=== PATIENT | female | born 1960 | race Caucasian/White ===

== ENCOUNTER → 2020-06-05 10:20 | Outpatient (CLI) | payer OTHER, SELFPAY ==
--- NOTE | ~2020-06-05 | MM_ITS ---
EXAMINATION: MM screening [facility] BI w lo HISTORY: Screening TECHNIQUE: Craniocaudal and mediolateral oblique 3-D tomosynthesis images were obtained and synthetic 2-D images were generated. CAD analysis was submitted and interpreted. COMPARISON: Comparison to multiple prior studies sequentially, with oldest reviewed study dated 11/10. BREAST PARENCHYMAL COMPOSITION: There are scattered areas of fibroglandular density. FINDINGS: There is no evidence of suspicious mass, calcification, or architectural distortion to sugg est malignancy in either breast. There has been no suspicious interval change. IMPRESSION: 1. No mammographic evidence of malignancy. 2. Recommend routine screening mammography in one year. BI-RADS Category 1: Negative Reviewed, dictated and finalized at location A. ENTAL PAVER INSTALLER
== END ==
PROVIDERS: PCP Nurse Practitioner Family; Visit Provider Obstetrics & Gynecology
DX: Z12.31 Encounter for screening mammogram for malignant neoplasm of breast (principal)
CPT/HCPCS: 77063; 77067

== ENCOUNTER → 2021-03-30 02:29 | Outpatient (CLI) | payer OTHER, SELFPAY ==
[2021-03-30 19:54] LABS: SARS-CoV-2 RNA PCR Positive
== END ==
PROVIDERS: PCP Nurse Practitioner Family; Visit Provider Nurse Practitioner
DX: U07.1 COVID-19 (principal)
CPT/HCPCS: C9803; U0003; U0005

== ENCOUNTER → 2021-08-20 10:43 | Outpatient (CLI) | payer OTHER, SELFPAY ==
--- NOTE | ~2021-08-20 | MM_ITS ---
EXAMINATION: MM screening [facility] w lo HISTORY: Screening TECHNIQUE: Craniocaudal and mediolateral oblique 3-D tomosynthesis images were obtained and synthetic 2-D images were generated. CAD analysis was submitted and interpreted. COMPARISON: Comparison to multiple prior studies sequentially, with oldest reviewed study dated . . BREAST PARENCHYMAL COMPOSITION: The breasts are almost entirely fatty. FINDINGS: There is no evidence of suspicious mass, calcification, or architectural distortion to sugg est malignancy in either breast. There has been no suspicious interval change. IMPRESSION: 1. No mammographic evidence of malignancy. 2. Recommend routine screening mammography in one year. BI-RADS Category 1: Negative Reviewed, dictated and finalized at location A. TICAL SCIENCE RESEARCH ASSISTANT
== END ==
PROVIDERS: Visit Provider Obstetrics & Gynecology
DX: Z12.31 Encounter for screening mammogram for malignant neoplasm of breast (principal)
CPT/HCPCS: 77063; 77067

== ENCOUNTER 2022-01-20 00:18 | Day surgery (SDC) | payer OTHER, SELFPAY ==
[2022-01-10 11:11] VITALS: BMI 32.0
--- NOTE | 2022-01-20 07:31 | WPDANESEPPF ---
Anes - Initial Pre Proc Eval Procedure: Operation Date: 01/20/22 09:15 Proposed Procedures p Screening Colonoscopy - Trino Spangler MD Date/Time: 01/20/22 07:31 Surgeon: Trino Spangler MD Pre Op Diagnosis: neoplasm screening, family hx of colon cancer Patient Data Age: 61 Gender: F Height: 1.68 m Weight: 90 kg Allergies Allergy/AdvReac Type Severity Reaction Status Date / Time No Known Allergies Allergy Verified 01/10/22 11:21 Home Medications Medication Instructions Recorded Confirmed Type cholecalciferol (vitamin D3) 25 25 mcg PO DAILY 04/29/21 01/10/22 History mcg (1,000 unit) capsule cranberry 400 mg capsule 400 mg PO DAILY 04/29/21 01/10/22 History multivitamin (Daily Multi-Vitamin 1 tablet PO DAILY 04/29/21 01/10/22 History tablet) omega-3 fatty acids 1,000 mg 1,200 mg PO BID 04/29/21 01/10/22 History capsule (Fish Oil Concentrate) potassium iodide 65 mg tablet 130 mg PO DAILY 11/02/21 01/10/22 History simvastatin 10 mg tablet 10 mg PO QHS #90 tabs 12/13/21 01/10/22 Rx levothyroxine 50 mcg tablet 50 mcg PO DAILY #90 tabs 12/28/21 01/10/22 Rx aspirin 81 mg capsule 81 mg PO DAILY 01/10/22 01/10/22 History biotin 5,000 mcg sublingual tablet 5,000 mcg sublingual DAILY 01/10/22 01/10/22 History lactobacillus combination no.8 3 1 cell PO DAILY 01/10/22 01/10/22 History billion cell capsule Patient hx anesthesia problems: none Family hx anesthesia problems: none Results Review: All pre-operative results and documents have been reviewed as part of the pre-operative evaluation. [facility] Past Medical History Medical History (Updated 01/20/22 @ 07:32 by Maksim Bajwa DO) Family hx of colon cancer Hypertension Hypothyroidism (acquired) Mixed hyperlipidemia Prediabetes Surgical History Surgical History No history of previous surgery Family History Family History Mother Carcinoma of colon Heart disease Father Lung cancer Social History Social History Years smoked: 2,007 Smoking status: Former smoker Tobacco type: cigarettes Alcohol intake: current Drinks per week: 7 Substance use type: marijuana Living arrangements: with family Anes - Eval Final PreProcedure Day of Procedure 01/20/22 07:31 Patient weight: obese Heart: regular rate and rhythm Lungs: clear to auscultation Airway: Mallampati scale class II Neurological: alert and oriented Last oral intake: >/= 8 hours ASA classification: III Emergent: no Anesthetic plan: proceed Anesthesia type and monitoring: general GIVS and standard monitoring Results Review: All pre-operative results and documents have been reviewed as part of the pre-operative evaluation. Informed Consent: The patient's anesthetic plan and its attendant risks and benefits were discussed with the patient/family/POA. Questions were solicited and answers provided to the satisfaction of the patient/family/POA.
[2022-01-20 07:47] VITALS: BP 161/92; PULSE 66; RESP 18; TEMP 36.7; O2SAT 100; BMI 32.1
--- NOTE | 2022-01-20 07:49 | WPDGICN ---
Assessment and Plan Assessment and plan (1) Family hx of colon cancer: Code(s): Z80.0 - Family history of malignant neoplasm of digestive organs Status: Acute Assessment and Plan: Patient has a family history of colon cancer in her mother. Plan is for surveillance colonoscopy now and consider this at 5 year intervals in the future. GI Consult Note Consult date/time: 01/20/22 07:49 Reason for consult: Family history of colon cancer. HPI: Cleo Salazar is a 61 year old female Presents for screening colonoscopy. Patient's current weight appetite and bowel movements are normal. She denies abdominal pain. Patient has had no bleeding. Family history is significant that her mother had colon cancer. Patient reports previous colonoscopy 11 years ago was unremarkable. She presents today for neoplasia screening. Review of Systems Review of Systems: Review of systems noncontributory. [facility] Past Medical History Medical History (Updated 01/20/22 @ 07:32 by Maksim Bajwa DO) Family hx of colon cancer Hypertension Hypothyroidism (acquired) Mixed hyperlipidemia Prediabetes Surgical History Surgical History No history of previous surgery Family History Family History Mother Carcinoma of colon Heart disease Father Lung cancer Social History Social History Years smoked: 2,007 Smoking status: Former smoker Tobacco type: cigarettes Alcohol intake: current Drinks per week: 7 Substance use type: marijuana Living arrangements: with family Meds Home Medications and Allergies Home Medications Medication Instructions Recorded Confirmed Type cholecalciferol (vitamin D3) 25 25 mcg PO DAILY 04/29/21 01/10/22 History mcg (1,000 unit) capsule cranberry 400 mg capsule 400 mg PO DAILY 04/29/21 01/10/22 History multivitamin (Daily Multi-Vitamin 1 tablet PO DAILY 04/29/21 01/10/22 History tablet) omega-3 fatty acids 1,000 mg 1,200 mg PO BID 04/29/21 01/10/22 History capsule (Fish Oil Concentrate) potassium iodide 65 mg tablet 130 mg PO DAILY 11/02/21 01/10/22 History simvastatin 10 mg tablet 10 mg PO QHS #90 tabs 12/13/21 01/10/22 Rx levothyroxine 50 mcg tablet 50 mcg PO DAILY #90 tabs 12/28/21 01/10/22 Rx aspirin 81 mg capsule 81 mg PO DAILY 01/10/22 01/10/22 History biotin 5,000 mcg sublingual tablet 5,000 mcg sublingual DAILY 01/10/22 01/10/22 History lactobacillus combination no.8 3 1 cell PO DAILY 01/10/22 01/10/22 History billion cell capsule Allergies Allergy/AdvReac Type Severity Reaction Status Date / Time No Known Allergies Allergy Verified 01/20/22 07:46 Vital Signs Vital Signs - 24 hr 01/20/22 07:47 Temperature 98.1 F Pulse Rate 66 Respiratory Rate 18 Blood Pressure 161/92 H Pulse Oximetry 100 Oxygen Delivery Room Air Exam Narrative: Physical exam reveals patient to be alert. Vital signs stable. HEENT exam is unremarkable. Patient is anicteric. Lungs are clear to auscultation and percussion. Heart is without murmur or extra sounds. Abdominal exam bowel sounds are present soft nontender with no organomegaly. Digital external rectal exam is normal.
[2022-01-20] MEDS: LACTATED RINGERS 1,000 ML 150 ML IV CONT (07:59)
[2022-01-20 09:05] VITALS: BP 104/64; PULSE 60; RESP 23; O2SAT 100
[2022-01-20 09:15] VITALS: BP 122/82; PULSE 62; RESP 18; O2SAT 100
[2022-01-20 09:25] VITALS: BP 128/75; PULSE 48; RESP 19; O2SAT 100
== END 2022-01-20 09:40 | disposition home or self-care (01) ==
PROVIDERS: PCP Nurse Practitioner Family; Visit Provider Internal Medicine Gastroenterology
PROC: 0DJD8ZZ Inspection of Lower Intestinal Tract, Via Natural or Artificial Opening Endoscopic (ICD-10-PCS; CPT 45378; principal; 2022-01-20 09:15)
DX: Z12.11 Encounter for screening for malignant neoplasm of colon (principal); Z80.0 Family history of malignant neoplasm of digestive organs; K64.8 Other hemorrhoids; K57.30 Diverticulosis of large intestine without perforation or abscess without bleeding; I10 Essential (primary) hypertension; E03.9 Hypothyroidism, unspecified; R73.03 Prediabetes; E78.2 Mixed hyperlipidemia; Z87.891 Personal history of nicotine dependence; F12.90 Cannabis use, unspecified, uncomplicated; Z79.82 Long term (current) use of aspirin; E66.9 Obesity, unspecified; Z68.32 Body mass index [BMI] 32.0-32.9, adult
CPT/HCPCS: 45378; J2704; J7120

== ENCOUNTER 2022-05-03 10:15 | Outpatient (CLI) | payer OTHER, SELFPAY ==
[2022-05-03 18:34] LABS: Alanine Aminotransferase 20 U/L (6-35); Albumin Level 4.3 g/dL (3.5-5.1); Alkaline Phosphatase 67 U/L (38-126); Anion Gap 10 mmol/L (8-16); Aspartate Amino Transferase 72 U/L (14-36); Bilirubin,Total 0.4 mg/dL (0.2-1.3); Blood Urea Nitrogen 16 mg/dL (7-17); Calcium 8.8 mg/dL (8.4-10.2); Carbon Dioxide 29 mmol/L (22-30); Chloride 105 mmol/L (98-107); Cholesterol 212 mg/dL (0-200); Estimated Glomerular Filt Rate > 60; Glucose 104 mg/dL (65-110); HDL Direct 65 mg/dL; Potassium 4.1 mmol/L (3.4-5.0); Sodium 144 mmol/L (137-145); Triglycerides 97 mg/dL (<150)
[2022-05-03 18:45] LABS: LDL Cholesterol Direct 107 mg/dL
[2022-05-03 18:47] LABS: Basophils Absolute Auto 0.1 K/mm3 (0.0-0.1); Basophils Percent Auto 1.2 % (0.2-1.2); Eosinophils Absolute Auto 0.1 K/mm3 (0-0.3); Eosinophils Percent Auto 1.9 % (0-4.4); Hematocrit 42.4 % (37.0-47.0); Hemoglobin 13.3 g/dL (12.0-15.0); Immature Granulocyte Absolute 0.01 K/mm3 (0.00-0.031); Immature Granulocyte Percent A 0.2 % (0-0.5); Lymphocytes Absolute Auto 1.66 K/mm3 (0.9-3.2); Lymphocytes Percent Auto 28.6 % (18.3-44.2); Mean Corpuscular HGB Conc 31.4 g/dl (32-36); Mean Corpuscular Hemoglobin 31.5 pg (26-34); Mean Corpuscular Volume 100.5 fl (80-100); Mean Platelet Volume 10.5 fl (7.4-10.4); Monocytes Absolute Auto 0.4 K/mm3 (0.1-0.6); Monocytes Percent Auto 6.9 % (2.6-8.5); Neutrophils Absolute Auto 3.6 K/mm3 (1.3-6.7); Neutrophils Percent Auto 61.2 % (45.5-73.1); Platelet Count Result 251 k/mm3 (150-375); Red Blood Count 4.22 M/mm3 (4.2-5.4); Red Cell Distribution Width 12.7 % (11.5-14.5); White Blood Count 5.8 K/mm3 (4.5-10.0)
[2022-05-03 19:39] LABS: Hemoglobin A1C 5.7 % (<5.7)
== END 2022-05-03 10:16 | disposition home or self-care (01) ==
LOC: ANHGOSHLAB 10:18
PROVIDERS: PCP Nurse Practitioner Family; Visit Provider Nurse Practitioner Family
DX: E78.5 Hyperlipidemia, unspecified (principal); E03.9 Hypothyroidism, unspecified; E78.2 Mixed hyperlipidemia; R73.03 Prediabetes
CPT/HCPCS: 36415; 80053; 80061; 83036; 84443; 85025

== ENCOUNTER 2022-12-06 10:31 | Outpatient (CLI) | payer OTHER, SELFPAY ==
[2022-12-06 14:14] LABS: Alanine Aminotransferase 21 U/L (6-35); Albumin Level 4.2 g/dL (3.5-5.1); Alkaline Phosphatase 66 U/L (38-126); Anion Gap 6 mmol/L (8-16); Aspartate Amino Transferase 50 U/L (14-36); Bilirubin,Total 0.5 mg/dL (0.2-1.3); Blood Urea Nitrogen 17 mg/dL (7-17); Calcium 9.2 mg/dL (8.4-10.2); Carbon Dioxide 31 mmol/L (22-30); Chloride 103 mmol/L (98-107); Cholesterol 196 mg/dL (0-200); Estimated Glomerular Filt Rate > 60; Glucose 103 mg/dL (65-110); HDL Direct 69 mg/dL; Potassium 3.9 mmol/L (3.4-5.0); Sodium 140 mmol/L (137-145); Triglycerides 100 mg/dL (<150)
[2022-12-06 14:25] LABS: LDL Cholesterol Direct 102 mg/dL
[2022-12-06 14:35] LABS: Hemoglobin A1C 5.5 % (<5.7); Vitamin D 25 Hydroxy 70.8 ng/mL
[2022-12-06 14:48] LABS: Thyroid Stimulating Hormone Reflex 0.372 uIU/mL (0.465-4.68)
[2022-12-07 11:43] LABS: Free T4 Free Thyroxine Reflex 1.09 ng/dL (0.78-2.19)
[2022-12-07 14:29] LABS: Total Triiodothyronine (T3) 1.29 NG/ML (0.97-1.69)
== END 2022-12-06 10:32 | disposition home or self-care (01) ==
LOC: ANHGOSHLAB 10:32
PROVIDERS: PCP Nurse Practitioner Family; Visit Provider Nurse Practitioner Family
DX: E78.2 Mixed hyperlipidemia (principal); R73.03 Prediabetes; E03.9 Hypothyroidism, unspecified; E55.9 Vitamin D deficiency, unspecified
CPT/HCPCS: 36415; 80053; 80061; 82306; 83036; 84439; 84443; 84480

== ENCOUNTER → 2022-12-15 11:36 | Outpatient (CLI) | payer OTHER, SELFPAY ==
--- NOTE | ~2022-12-15 | MM_ITS ---
EXAMINATION: MM screening [facility] BI w lo HISTORY: Screening mammogram TECHNIQUE: Craniocaudal and mediolateral oblique 3-D tomosynthesis images were obtained and synthetic 2-D images were generated. CAD analysis was submitted and interpreted. COMPARISON: 08/20/2021, 06/05/2020, 01/23/2019 BREAST PARENCHYMAL COMPOSITION: The breasts are almost entirely fatty. FINDINGS: No suspicious mass, calcification, or architectural distortion are identified in either alyssa ast to suggest malignancy. There has been no suspicious interval change. IMPRESSION: 1. No mammographic evidence of malignancy. 2. Recommend routine screening mammography in one year. BI-RADS Category 1: Negative Reviewed, dictated and finalized at location A.
== END ==
PROVIDERS: PCP Obstetrics & Gynecology; Visit Provider Obstetrics & Gynecology
DX: Z12.31 Encounter for screening mammogram for malignant neoplasm of breast (principal)
CPT/HCPCS: 77063; 77067

== ENCOUNTER 2023-11-16 09:39 | Outpatient (CLI) | payer MEDICARE, SELFPAY ==
[2023-11-16 13:43] LABS: Basophils Percent Auto 0.6 % (0.2-1.2); Eosinophils Absolute Auto 0.1 K/mm3 (0-0.3); Eosinophils Percent Auto 1.8 % (0-4.4); Hematocrit 41.4 % (37.0-47.0); Hemoglobin 12.8 g/dL (12.0-15.0); Immature Granulocyte Absolute 0.02 K/mm3 (0.00-0.031); Immature Granulocyte Percent A 0.3 % (0-0.5); Lymphocytes Absolute Auto 2.19 K/mm3 (0.9-3.2); Lymphocytes Percent Auto 32.8 % (18.3-44.2); Mean Corpuscular HGB Conc 30.9 g/dl (32-36); Mean Corpuscular Volume 100.2 fl (80-100); Mean Platelet Volume 10.6 fl (7.4-10.4); Monocytes Absolute Auto 0.5 K/mm3 (0.1-0.6); Monocytes Percent Auto 8.1 % (2.6-8.5); Neutrophils Absolute Auto 3.8 K/mm3 (1.3-6.7); Neutrophils Percent Auto 56.4 % (45.5-73.1); Platelet Count Result 272 k/mm3 (150-375); Red Blood Count 4.13 M/mm3 (4.2-5.4); Red Cell Distribution Width 13.1 % (11.5-14.5); White Blood Count 6.7 K/mm3 (4.5-10.0)
[2023-11-16 13:54] LABS: Hemoglobin A1C 5.5 % (<5.7)
[2023-11-16 14:01] LABS: Alanine Aminotransferase 18 U/L (6-35); Albumin Level 4.1 g/dL (3.5-5.1); Alkaline Phosphatase 67 U/L (38-126); Anion Gap 1 mmol/L (4-12); Aspartate Amino Transferase 46 U/L (14-36); Bilirubin,Total 0.5 mg/dL (0.2-1.3); Blood Urea Nitrogen 20 mg/dL (7-17); Calcium 9.4 mg/dL (8.4-10.2); Carbon Dioxide 32 mmol/L (22-30); Chloride 107 mmol/L (98-107); Cholesterol 186 mg/dL (0-200); Estimated Glomerular Filt Rate > 60; Glucose 104 mg/dL (65-110); HDL Direct 77 mg/dL; Potassium 4.3 mmol/L (3.4-5.0); Sodium 140 mmol/L (137-145); Triglycerides 91 mg/dL (<150)
[2023-11-16 14:12] LABS: LDL Cholesterol Direct 101 mg/dL
[2023-11-16 14:31] LABS: Thyroid Stimulating Hormone < 0.015 uIU/mL (0.465-4.680)
[2023-11-19 11:19] LABS: Vitamin D 1,25 (OH)2 Total 55 pg/mL (18-72); Vitamin D2 1,25 (OH)2 <8 pg/mL; Vitamin D3 1,25 (OH)2 55 pg/mL
== END 2023-11-16 09:40 | disposition home or self-care (01) ==
PROVIDERS: PCP Nurse Practitioner Family; Visit Provider Nurse Practitioner Family
DX: E03.9 Hypothyroidism, unspecified (principal); E55.9 Vitamin D deficiency, unspecified; E78.2 Mixed hyperlipidemia; E11.9 Type 2 diabetes mellitus without complications
CPT/HCPCS: 36415; 80053; 80061; 82652; 83036; 84443; 85025

== ENCOUNTER 2024-05-17 10:22 | Outpatient (CLI) | payer MEDICARE, SELFPAY ==
[2024-05-17 17:59] LABS: Basophils Absolute Auto 0.1 K/mm3 (0.0-0.1); Basophils Percent Auto 0.8 % (0.2-1.2); Eosinophils Absolute Auto 0.2 K/mm3 (0-0.3); Eosinophils Percent Auto 2.7 % (0-4.4); Hematocrit 42.5 % (37.0-47.0); Hemoglobin 13.6 g/dL (12.0-15.0); Immature Granulocyte Absolute 0.01 K/mm3 (0.00-0.031); Immature Granulocyte Percent A 0.2 % (0-0.5); Lymphocytes Absolute Auto 2.15 K/mm3 (0.9-3.2); Lymphocytes Percent Auto 34.7 % (18.3-44.2); Mean Corpuscular Hemoglobin 31.5 pg (26-34); Mean Corpuscular Volume 98.4 fl (80-100); Mean Platelet Volume 10.2 fl (7.4-10.4); Monocytes Absolute Auto 0.4 K/mm3 (0.1-0.6); Monocytes Percent Auto 6.3 % (2.6-8.5); Neutrophils Absolute Auto 3.4 K/mm3 (1.3-6.7); Neutrophils Percent Auto 55.3 % (45.5-73.1); Platelet Count Result 260 k/mm3 (150-375); Red Blood Count 4.32 M/mm3 (4.2-5.4); Red Cell Distribution Width 12.2 % (11.5-14.5); White Blood Count 6.2 K/mm3 (4.5-10.0)
[2024-05-17 18:32] LABS: Hemoglobin A1C 5.8 % (<5.7)
[2024-05-17 19:12] LABS: Thyroid Stimulating Hormone Reflex 0.019 uIU/mL (0.465-4.68)
[2024-05-17 20:44] LABS: Free T4 Free Thyroxine Reflex 0.89 ng/dL (0.78-2.19)
[2024-05-17 22:12] LABS: Total Triiodothyronine (T3) 1.28 NG/ML (0.97-1.69)
[2024-05-17 23:14] LABS: Alanine Aminotransferase 18 U/L (6-35); Albumin Level 4.2 g/dL (3.5-5.1); Alkaline Phosphatase 74 U/L (38-126); Anion Gap 5 mmol/L (4-12); Aspartate Amino Transferase 23 U/L (14-36); Bilirubin,Total 0.6 mg/dL (0.2-1.3); Blood Urea Nitrogen 19 mg/dL (7-17); Calcium 9.9 mg/dL (8.4-10.2); Carbon Dioxide 32 mmol/L (22-30); Chloride 102 mmol/L (98-107); Cholesterol 251 mg/dL (0-200); Estimated Glomerular Filt Rate > 60; Glucose 98 mg/dL (65-110); HDL Direct 72 mg/dL; Potassium 4.4 mmol/L (3.4-5.0); Sodium 139 mmol/L (137-145); Triglycerides 157 mg/dL (<150)
[2024-05-17 23:25] LABS: LDL Cholesterol Direct 145 mg/dL
== END 2024-05-17 10:23 | disposition home or self-care (01) ==
PROVIDERS: PCP Family Medicine; Visit Provider Nurse Practitioner Family
DX: R73.03 Prediabetes (principal); I10 Essential (primary) hypertension; E78.5 Hyperlipidemia, unspecified; E03.9 Hypothyroidism, unspecified
CPT/HCPCS: 36415; 80053; 80061; 83036; 84439; 84443; 84480; 85025

== ENCOUNTER 2024-11-11 12:51 | Outpatient (CLI) | payer MEDICARE, SELFPAY ==
--- NOTE | ~2024-11-11 | MM_ITS ---
EXAMINATION: MM screening [facility] BI w lo HISTORY: Screening TECHNIQUE: Craniocaudal and mediolateral oblique 3-D tomosynthesis images were obtained and synthetic 2-D images were generated. CAD analysis was submitted and interpreted. COMPARISON: Comparison to multiple prior studies sequentially, with oldest reviewed study dated 11/10. BREAST PARENCHYMAL COMPOSITION: Not dense: There are scattered areas of fibroglandular density. FINDINGS: There is no evidence of suspicious mass, calcification, or architectural distortion to sugg est malignancy in either breast. There has been no suspicious interval change. IMPRESSION: 1. No mammographic evidence of malignancy. 2. Recommend routine screening mammography in one year. BI-RADS Category 1: Negative Reviewed, dictated and finalized at location B.
== END 2024-11-11 12:52 | disposition home or self-care (01) ==
LOC: MICIMG 12:52
PROVIDERS: PCP Family Medicine; Visit Provider Obstetrics & Gynecology
DX: Z12.31 Encounter for screening mammogram for malignant neoplasm of breast (principal)
CPT/HCPCS: 77063; 77067

== ENCOUNTER 2024-12-02 09:09 | Outpatient (CLI) | payer MEDICARE, SELFPAY ==
--- OUTSIDE RECORDS SUMMARY | 2024-12-02 09:38 | XMS_ITS | Clinical Summary ---
Author Organization [facility] Address [address] [place] [id number] Care Team Providers Care Overhead Cleaner Name Role Phone Unavailable Primary Care Provider Unavailabl e Social History Tobacco Use Types Packs/Day Years Used Date Smoking Tobacco: Never Assessed Comments Unknown Sex and Gender Information Value Date Recorded Sex Assigned at Not on file Legal Sex Female 7:42 PM CDT Gender Identity Not on file Sexual Orientation Not on file Plan of Treatment Health Maintenance Due Date Last Done Comments Colorectal Cancer Screening Colonoscopy (10 Years) 1958 Hepatitis C 1976 DTaP, Tdap and Td Vaccines ( 1 - Tdap) 1977 Mammogram Screening 1998 Pneumococcal Vaccine: 50+ Ye ars (1 of 1 - PCV) 2008 Zoster Vaccines (1 of 2) 2008 Dexa Scan (General) 2023 COVID-19 Vaccine ( - 2023-2 5 season) 2024 RSV Immunization or 60+ Years (1 - 1-dose 75+ series) 2033 Meningococcal B Vaccine Aged Out No l onger eligible based on patient's age to complete this topic Meningococcal Vaccine Aged Out No bandar [place] eligible based on patient's age to complete this topic RSV Immunizations Under 20 Months Aged Out No longer eligible based on patient's age to complete this topic
[2024-12-02 12:36] LABS: Basophils Absolute Auto 0.1 K/mm3 (0.0-0.1); Eosinophils Absolute Auto 0.1 K/mm3 (0-0.3); Eosinophils Percent Auto 2.1 % (0-4.4); Hematocrit 42.2 % (37.0-47.0); Hemoglobin 13.1 g/dL (12.0-15.0); Immature Granulocyte Absolute 0.01 K/mm3 (0.00-0.031); Immature Granulocyte Percent A 0.2 % (0-0.5); Lymphocytes Absolute Auto 1.85 K/mm3 (0.9-3.2); Mean Corpuscular Hemoglobin 30.9 pg (26-34); Mean Corpuscular Volume 99.5 fl (80-100); Mean Platelet Volume 10.5 fl (7.4-10.4); Monocytes Absolute Auto 0.4 K/mm3 (0.1-0.6); Monocytes Percent Auto 6.5 % (2.6-8.5); Neutrophils Absolute Auto 3.7 K/mm3 (1.3-6.7); Neutrophils Percent Auto 60.2 % (45.5-73.1); Platelet Count Result 284 k/mm3 (150-375); Red Blood Count 4.24 M/mm3 (4.2-5.4); Red Cell Distribution Width 12.4 % (11.5-14.5); White Blood Count 6.2 K/mm3 (4.5-10.0)
[2024-12-02 13:12] LABS: Alanine Aminotransferase 20 U/L (6-35); Albumin Level 4.2 g/dL (3.5-5.1); Alkaline Phosphatase 71 U/L (38-126); Anion Gap 4 mmol/L (4-12); Aspartate Amino Transferase 38 U/L (14-36); Bilirubin,Total 0.5 mg/dL (0.2-1.3); Blood Urea Nitrogen 16 mg/dL (7-17); Calcium 9.3 mg/dL (8.4-10.2); Carbon Dioxide 32 mmol/L (22-30); Chloride 104 mmol/L (98-107); Cholesterol 211 mg/dL (0-200); Estimated Glomerular Filt Rate > 60; Glucose 106 mg/dL (65-110); HDL Direct 80 mg/dL; Potassium 3.8 mmol/L (3.4-5.0); Sodium 140 mmol/L (137-145); Triglycerides 114 mg/dL (<150)
[2024-12-02 13:24] LABS: LDL Cholesterol Direct 96 mg/dL
[2024-12-02 13:41] LABS: Hemoglobin A1C 5.7 % (<5.7)
[2024-12-02 13:43] LABS: Thyroid Stimulating Hormone 0.051 uIU/mL (0.465-4.680)
[2024-12-02 14:02] LABS: Free T4 Free Thyroxine 0.92 ng/dL (0.78-2.19); Vitamin D 25 Hydroxy 55.3 ng/mL
== END 2024-12-02 09:10 | disposition home or self-care (01) ==
LOC: ANHGOSHLAB 09:10
PROVIDERS: PCP Family Medicine; Visit Provider Nurse Practitioner Family
DX: E55.9 Vitamin D deficiency, unspecified (principal); I10 Essential (primary) hypertension; E03.9 Hypothyroidism, unspecified; E78.5 Hyperlipidemia, unspecified; R73.03 Prediabetes
CPT/HCPCS: 36415; 80053; 80061; 82306; 83036; 84439; 84443; 85025

== ENCOUNTER 2025-06-13 08:51 | Outpatient (CLI) | payer MEDICARE, SELFPAY ==
--- OUTSIDE RECORDS SUMMARY | 2025-06-13 09:10 | XMS_ITS | Clinical Summary ---
Author Organization [facility] Address [address] [place] [id number] Care Team Providers Care Oral Health Therapist Name Role Phone Unavailable Primary Care Provider [...] Scan (General) 2023 COVID-19 Vaccine ( - 2024-2 6 season) 2025 Influenza Adult (#1) 2025 RSV Immunization or 60+ Years (1 - 1-dose 75+ series) 2033 Hepatitis A Vaccines Aged Out No long er eligible based on patient's age to complete this topic Meningococcal B Vaccine Aged Out No l onger eligible based on patient's age to complete this topic Meningococcal Vaccine Aged Out No bandar [place] eligible based on patient's age to complete this topic RSV Immunizations Under 20 Months Aged Out No longer eligible based on patient's age to complete this topic
[2025-06-13 11:10] LABS: Hematocrit 41.5 % (37.0-47.0); Hemoglobin 13.1 g/dL (12.0-15.0); Immature Granulocyte Percent A 0.3 % (0-0.5); Lymphocytes Absolute Auto 2.20 K/mm3 (0.9-3.2); Mean Corpuscular HGB Conc 31.6 g/dl (32-36); Mean Corpuscular Hemoglobin 31.2 pg (26-34); Mean Corpuscular Volume 98.8 fl (80-100); Nucleated Red Blood Cells Absolute Auto 0.000 K/mm3 (0.0-0.012); Nucleated Red Blood Cells Perc 0.0 % (0.0-0.2); Platelet Count Result 239 k/mm3 (150-375); Red Blood Count 4.20 M/mm3 (4.2-5.4); White Blood Count 6.0 K/mm3 (4.5-10.0)
[2025-06-13 11:26] LABS: Anion Gap 4 mmol/L (4-12); Blood Urea Nitrogen 14 mg/dL (7-17); Carbon Dioxide 30 mmol/L (22-30); Chloride 105 mmol/L (98-107); Potassium 4.6 mmol/L (3.4-5.0); Sodium 139 mmol/L (137-145)
[2025-06-13 11:27] LABS: Alanine Aminotransferase 17 U/L (6-35); Albumin Level 4.3 g/dL (3.5-5.1); Alkaline Phosphatase 76 U/L (38-126); Aspartate Amino Transferase 46 U/L (14-36); Bilirubin,Total 0.6 mg/dL (0.2-1.3); Calcium 9.2 mg/dL (8.4-10.2); Cholesterol 217 mg/dL (0-200); Estimated Glomerular Filt Rate > 60; Glucose 114 mg/dL (65-110); HDL Direct 72 mg/dL; Total Protein 7.0 g/dL (6.3-8.2); Triglycerides 129 mg/dL (<150)
[2025-06-13 11:35] LABS: Free T4 Free Thyroxine 0.86 ng/dL (0.78-2.19)
[2025-06-13 11:58] LABS: Thyroid Stimulating Hormone 2.800 uIU/mL (0.465-4.680)
[2025-06-13 12:57] LABS: Hemoglobin A1C 5.8 % (<5.7)
== END 2025-06-13 08:52 | disposition home or self-care (01) ==
PROVIDERS: PCP Family Medicine; Visit Provider Nurse Practitioner Family
DX: E03.9 Hypothyroidism, unspecified (principal); R73.03 Prediabetes; E55.9 Vitamin D deficiency, unspecified; E78.5 Hyperlipidemia, unspecified; I10 Essential (primary) hypertension
CPT/HCPCS: 36415; 80053; 80061; 82306; 83036; 84439; 84443; 85025